=== PATIENT | male | born 1950 | race Caucasian/White ===

== ENCOUNTER → 2019-01-06 15:12 | Outpatient (CLI) | payer MEDICARE, OTHER ==
[~2019-01-06 15:12] MED LIST: ALBUTEROL SULF8.5 GM INH; BACTRIM 400-801 TAB PO; BYSTOLIC10 MG PO; DULERA 100 MCG8.8 GM INH; DULERA 200 MCG8.8 GM INH; LIPITOR10 MG PO; LISINOPRIL40 MG PO; METOPROLOL TART25 MG PO; PLAVIX75 MG PO
[2019-01-14 11:16] VITALS: BMI 27.6
== END | disposition home or self-care (01) ==
LOC: D.CT 15:12
PROVIDERS: ATTEND Thoracic Surgery (Cardiothoracic Vascular Surgery)
DX: I65.23 Occlusion and stenosis of bilateral carotid arteries (principal)

== ENCOUNTER 2019-01-08 08:10 | Inpatient (IN) | payer MEDICARE, OTHER ==
[~2019-01-08] VITALS: Ht 180.3 cm; Wt 87.3 kg
[2019-01-08] MEDS ORDERED: PLAVIX75 MG PO (08:58)
[2019-01-08] MEDS ORDERED: METOPROLOL TART25 MG PO (08:59)
[2019-01-08] MEDS ORDERED: LIPITOR10 MG PO (09:00)
[2019-01-08] MEDS ORDERED: DULERA 200 MCG8.8 GM INH (09:01)
[2019-01-08] MEDS ORDERED: ALBUTEROL SULF8.5 GM INH (09:02)
[2019-01-08] MEDS ORDERED: BYSTOLIC10 MG PO (09:03)
[2019-01-08] MEDS ORDERED: LISINOPRIL40 MG PO (09:05)
[2019-01-08 10:50] LABS: HEMOGLOBIN 18.4 g/dL (13.5-17.5); MCH 34.5 pg (26.0-34.0); MCHC 35.4 g/dL (31.0-37.0); MCV 97.6 fL (80.0-100.0); MEAN PLATELET VOLUME 9.8 fL (7.4-10.4); RBC 5.33 10x6/uL (4.20-6.10); RDW 13.6 % (11.5-14.5); WBC 9.8 10x3/uL (4.8-10.8)
[2019-01-08 11:12] LABS: APTT 32.7 SECONDS (22.8-39.4); INR 1.05 (0.85-1.17); PROTIME 13.2 SECONDS (11.6-15.0)
[2019-01-08 11:21] LABS: ALBUMIN 3.5 g/dL (3.4-5.0); ANION GAP 15.2 mmol/L (8-16); BILIRUBIN - TOTAL 0.86 mg/dL (0.2-1.3); CALCIUM 9.1 mg/dL (8.5-10.1); CARBON DIOXIDE 24.6 mmol/L (21.0-32.0); CREATININE - SERUM 1.1 mg/dL (0.6-1.3); POTASSIUM - SERUM 4.8 mmol/L (3.5-5.1); PROTEIN - SERUM 7.5 g/dL (6.4-8.2)
[2019-01-08 11:45] LABS: APPEARANCE HAZY (CLEAR); BACTERIA FEW /hpf (NONE SEEN); BILIRUBIN NEGATIVE (NEGATIVE); COLOR YELLOW (YELLOW); EPITHELIAL CELLS 0-5 /hpf (0-5); GLUCOSE NEGATIVE (NEGATIVE); KETONE NEGATIVE (NEGATIVE); MUCUS <1+ /lpf (NONE SEEN); NITRITE NEGATIVE (NEGATIVE); PROTEIN 2+ mg/dL (NEGATIVE); SPECIFIC GRAVITY 1.015 (1.005-1.020); UROBILINOGEN NORMAL (NORMAL); WHITE CELLS - URINE OCC /hpf (0-5)
[2019-01-11 12:20] LABS: APPEARANCE HAZY (CLEAR); BILIRUBIN NEGATIVE (NEGATIVE); COLOR YELLOW (YELLOW); GLUCOSE NEGATIVE (NEGATIVE); KETONE NEGATIVE (NEGATIVE); NITRITE NEGATIVE (NEGATIVE); PROTEIN 2+ mg/dL (NEGATIVE); RED CELLS - URINE 0-5 /hpf (0-5); SPECIFIC GRAVITY 1.005 (1.005-1.020); UROBILINOGEN NORMAL (NORMAL)
[2019-01-11 12:21] LABS: BACTERIA FEW /hpf (NONE SEEN); EPITHELIAL CELLS OCC /hpf (0-5); WHITE CELLS - URINE OCC /hpf (0-5)
[2019-01-14] VITALS (53 sets, daily range): BP systolic 100–165; BP diastolic 31–87; BMI 27.6
[2019-01-14] MEDS ORDERED: DULERA 100 MCG8.8 GM INH (05:53)
[2019-01-14] MEDS ORDERED: BACTRIM 400-801 TAB PO (05:55)
[2019-01-14 06:23] LABS: HEMATOCRIT 50.1 % (42.0-54.0); HEMOGLOBIN 17.8 g/dL (13.5-17.5); MCH 34.1 pg (26.0-34.0); MCHC 35.5 g/dL (31.0-37.0); MEAN PLATELET VOLUME 9.6 fL (7.4-10.4); RBC 5.22 10x6/uL (4.20-6.10); RDW 13.2 % (11.5-14.5); WBC 11.4 10x3/uL (4.8-10.8)
[2019-01-14 06:34] LABS: ALBUMIN 3.5 g/dL (3.4-5.0); ALKALINE PHOSPHATASE 85 U/L (46-116); ALT (SGPT) < 6 U/L (10-68); BILIRUBIN - TOTAL 0.83 mg/dL (0.2-1.3); CALC OSMOLALITY 265 mosm/kg (275-300); CALCIUM 8.9 mg/dL (8.5-10.1); CARBON DIOXIDE 25.2 mmol/L (21.0-32.0); CHLORIDE - SERUM 99 mmol/L (98-107); CREATININE - SERUM 1.3 mg/dL (0.6-1.3); GLUCOSE 107 mg/dL (74-106); POTASSIUM - SERUM 4.2 mmol/L (3.5-5.1); PROTEIN - SERUM 7.9 g/dL (6.4-8.2); SODIUM 133 mmol/L (136-145); UREA NITROGEN 13 mg/dL (7-18); eGFR NON AFRICAN AMERICAN 58 mL/min (90-120)
[2019-01-14 06:59] LABS: INR 1.01 (0.85-1.17); PROTIME 12.8 SECONDS (11.6-15.0)
[2019-01-14 07:00] LABS: APTT 35.9 SECONDS (22.8-39.4)
[2019-01-14 09:03] LABS: APPEARANCE HAZY (CLEAR); BILIRUBIN NEGATIVE (NEGATIVE); COLOR YELLOW (YELLOW); GLUCOSE NEGATIVE (NEGATIVE); KETONE NEGATIVE (NEGATIVE); NITRITE NEGATIVE (NEGATIVE); PROTEIN 2+ mg/dL (NEGATIVE); UROBILINOGEN NORMAL (NORMAL); WHITE CELLS - URINE 0-5 /hpf (0-5)
[2019-01-14 09:04] LABS: AMORPHOUS SEDIMENT <1+ /lpf (NONE SEEN); BACTERIA FEW /hpf (NONE SEEN); EPITHELIAL CELLS 0-5 /hpf (0-5); MUCUS <1+ /lpf (NONE SEEN); RED CELLS - URINE 0-5 /hpf (0-5)
--- NOTE | 2019-01-14 10:18 | NUR ---
PT ARRIVED IN THE UNIT. PT HOOKED TO ICU MONITORS. PT SLIGHTLY DROWSEY FROM ANESTESIA. PT ON CLEVIPREX AND NITRO. NSR ON THE MONITOR. SMILE SYMETRICAL. SHOW HOST OR HOSTESS BILATERALLY EQUAL. NEURO CHECKS WNL. RIGHT NECK DRESSING C/D/I. RIGHT UPPER CHEST DONALDO COMPRESSED WITH BLOODY DRAINGE NOTED. LEFT UPPER CHEST CVL NOTED. DRESSING C/D/I. RIGHT RADIAL JERED NOTED WITH A WRIST PROTECTOR ON. CAP REFILL <3 SECONDS. FC NOTED WITH CLEAR, YELLOW URINE. VSS AT THIS TIME WILL CONT POC.
--- NOTE | 2019-01-14 10:29 | NUR ---
NO NEEDLES SEEN IN XRAY. NEEDLES ON COOK STAND NOT COUNTED AT BEGINING OF CASE.
--- NOTE | 2019-01-14 11:15 | NUR ---
PT GIVEN ICE. PT TOLERATING WELL.
--- NOTE | 2019-01-14 11:42 | NUR ---
PT AWAKE AND ALERT. LEFT SIDED FACIAL DROOP NOTED. BILATERAL MUSIC COORDINATOR EQUAL. PUPILS REACTIVE. PT A&O X4. CLEAR SPEACH. WILL CONT POC.
--- NOTE | 2019-01-14 15:45 | NUR ---
PT DANGLED TO THE SIDE OF THE BED. NO ISSUES NOTED. TRACHEA REMAINS MIDLINE. NO STRIDOR. PT A&O X4. BILATEARL PATIENT CARE PROVIDER EQUAL. WILL CONT POC.
--- NOTE | 2019-01-14 17:11 | NUR ---
PT DANLGLED AT THE SIDE OF THE BED AND ATE HIS CLEAR LIQUID DIET. PT TOELRATED WELL. VSS. WILL CONT POC.
--- NOTE | 2019-01-14 19:15 | NUR ---
REPORT REC'D AND CARE ASSUMED, REC'D PT SITTING IN BED WATCHING TV ON ROOM AIR, AWAKE, ALERT, ORIENTED X 4, LEFT A/C PIV SALINE LOCKED, RIGHT RADIAL JERED WITH FLEXION BOARD IN USE, L CVL DRSG CDI WITH PLASMALYTE @ 30CC/HR, NITROGLYCERIN @ 10CC OR 33.33MCG/MIN, AND CLEVIPREX @ 5CC/HR OR 2.5MG/HR, RIGHT NECK DRSG CDI, RIGHT UPPER CHEST DONALDO DRAIN COMPRESSED WITH BLOODY DRAINAGE DRSG CDI, ABD SOFT, BS X 4, GOTTI PATENT DRAINING CLEAR YELLOW URINE, BILAT TEDS/SCDS, PPP, SR UP X 2, BED IN LOW POSITION, CALL LIGHT IN REACH.
--- NOTE | 2019-01-14 20:05 | NUR ---
BROTHER AND [id number] AT FOR VISITATION, UPDATE PROVIDED AND QUESTIONS ANSWERED.
--- NOTE | 2019-01-14 20:35 | NUR ---
EVENING MEDS GIVEN ORDERED, ICE WATER PROVIDED, PT REQUESTING PAIN PILL, TRAMADOL GIVEN FOR PAIN RATING OF "6" ON 0-10 PAIN SCALE, PT DENIES FURTHER NEEDS.
--- NOTE | 2019-01-14 23:15 | NUR ---
REASSESSMENT COMPLETED, NO CHANGES IN NEURO ASSESSMENT, PT REMAINS ORIENTED, DENIES PAIN OR OTHER NEEDS, VSS.
[2019-01-15] VITALS (60 sets, daily range): BP systolic 114–164; BP diastolic 44–82; Ht 180.3 cm; Wt 87.3 kg
--- NOTE | 2019-01-15 01:10 | NUR ---
PT AWAKE, REPOSITIONED UP IN BED FOR COMFORT, PT COMPLAINS OF NECK PAIN, RATING IT "8" ON 0-10 PAIN SCALE, TRAMADOL GIVEN PO AT THIS TIME, ATTEMPTING TO WEAN NITROGLYCERIN.
--- NOTE | 2019-01-15 03:30 | NUR ---
REASSESSMENT COMPLETED, CONTINUING TO WEAN NITROGLYCERIN TOLERATED, BILAT LIGHT TRUCK DRIVER EQUAL AND STRONG, TONGUE MIDLINE, SMILE SYMMETRICAL, DRSG TO RIGHT NECK CDI, RIGHT UPPER CHEST DONALDO DRAIN COMPRESSED WITH SMALL AMOUNT BLOODY DRAINAGE, VSS, WILL CONT TO MONITOR CLOSELY FOR CHANGES.
--- NOTE | 2019-01-15 04:45 | NUR ---
PT'S ICE PACK LEAKED IN BED WITH PATIENT, COMPLETE CHG BATH AND LINEN CHANGE PROVIDED, PT REPOSITIONED UP IN BED FOR COMFORT, VSS.
--- NOTE | 2019-01-15 05:30 | NUR ---
PT REQUESTING PAIN PILL, TRAMADOL PROVIDED AT THIS TIME, VSS, PT DENIES NO FURTHER NEEDS.
--- NOTE | 2019-01-15 05:30 | NUR ---
PT ASSISTED UP TO BATHROOM AND OVER TO RECLINER, CHG BATH GIVEN AND LINENS CHANGED, COFFEE PROVIDED ON REQUEST, CALL LIGHT AND BEDSIDE TABLE WITHIN REACH.
[2019-01-15 06:12] LABS: BASOPHILS 0.4 % (0-2); EOSINOPHILS 0.8 % (0-7); HEMATOCRIT 40.1 % (42.0-54.0); IMMATURE GRANULOCYTES 0.2 % (0-5); LYMPHOCYTES 7.3 % (15-50); MCH 33.1 pg (26.0-34.0); MCHC 34.2 g/dL (31.0-37.0); MCV 96.9 fL (80.0-100.0); MEAN PLATELET VOLUME 9.2 fL (7.4-10.4); MONOCYTES 7.6 % (2-11); NEUTROPHILS 83.7 % (40-80); PLATELET COUNT 222 10x3/uL (130-400); RDW 13.2 % (11.5-14.5); WBC 13.4 10x3/uL (4.8-10.8)
[2019-01-15 06:28] LABS: ANION GAP 13.1 mmol/L (8-16); CALCIUM 7.6 mg/dL (8.5-10.1); CARBON DIOXIDE 24.4 mmol/L (21.0-32.0); CREATININE - SERUM 1.1 mg/dL (0.6-1.3)
[2019-01-15 06:32] LABS: POTASSIUM - SERUM 3.5 mmol/L (3.5-5.1)
[2019-01-15 07:05] LABS: HEMOGLOBIN 13.7 g/dL (13.5-17.5); RBC 4.14 10x6/uL (4.20-6.10)
--- NOTE | 2019-01-15 09:25 | NUR ---
DONALDO REMOVED, A LINE REMOVED PER PROTOCOL TIP INTACT
[2019-01-15] MEDS ORDERED: ULTRAM50 MG PO (09:49)
--- NOTE | 2019-01-15 09:56 | NUR ---
0700 PT RECIEVED ALERT AND ORIENTED R CEA INCISION CDI, R DONALDO COMPRESSED, R A LINE GOOD WAVEFORM, WRIST PROTECTOR IN PLACE, ZEROED, L SUBCLAVIAN CVL DRESSING CDI 0930 ASSISTED UP TO CHAIR
--- NOTE | 2019-01-15 10:53 | NUR ---
1030 GOTTI DCD TIP INTACT URINAL PROVIDED
--- NOTE | 2019-01-15 14:14 | NUR ---
1200 ATE 75% LUNC 1400 PT COMPLAINING OF PAIN TO INCISION SITE, SLIGHT SWELLING NOTED, PT DENIES DIFFICULTY SWALLOWING OR BREATHING, ICE PACK APPLIED, CHIVO MACK RN NOTIFIED
--- NOTE | 2019-01-15 17:43 | NUR ---
1600 AMBULATED WITH PT 1700 ATE 75% DINNER 1730 ASSISTED TO BED
--- NOTE | 2019-01-15 18:02 | NUR ---
GIANNA ORDERED X4 DOSES AND IN COMMENTS X2 DOSES, VERIFIED WITH DR FLORES TO GIVE X4 DOSES
--- NOTE | 2019-01-15 20:30 | NUR ---
REPORT REC'D FROM Kimberly VELASQUEZ RN AND CARE ASSUMED, PT REC'D RESTING QUIETLY IN BED WATCHING TV ON ROOM AIR. AWAKE, ALERT, AND ORIENTED X 4, RIGHT NECK DRSG LOOSE, EDEMA NOTED TO INCISION LINE, DRSG TO PREVIOUS DONALDO SITE CDI, LDLSCL DRSG CDI BOTH PORTS SALINE LOCKED, MAEE, BILAT TEDS AND SCDS INTACT AND ON, PPP, PT DENIES NEEDS AT THIS TIME, BED IN LOW POSITION, CALL LIGHT IN REACH.
--- NOTE | 2019-01-15 20:45 | NUR ---
EVENING MEDS GIVEN, PT COMPLAINS OF INCISIONAL DISCOMFORT RATING IT "6" 0-10 PAIN SCALE, 50MG TRAMADOL GIVEN PO, PT DENIES FURTHER NEEDS.
--- NOTE | 2019-01-15 22:00 | NUR ---
PT ASSISTED UP TO BATHROOM, GAIT STEADY, PT DENIES DIZZINESS UPON RISING, PT INSTRUCTED TO CALL FOR ASSISTANCE BEFORE RETURNING TO BED.
--- NOTE | 2019-01-15 23:00 | NUR ---
REASSESSMENT COMPELTED, NO NEURO CHANGES NOTED, BP STABLE, PT RESTING IN BED EYES CLOSED, RESP EVEN AND UNLABORED, SR UP X 2, BED IN LOW POSITION, CALL LIGHT IN REACH.
[2019-01-16] VITALS (20 sets, daily range): BP systolic 140–197; BP diastolic 62–95
--- NOTE | 2019-01-16 01:00 | NUR ---
NO CHANGES IN STATUS AT THIS TIME
--- NOTE | 2019-01-16 03:00 | NUR ---
REASSESSMENT COMPLETED, PT ASSISTED UP TO THE BATHROOM AND BACK TO BED WITHOUT DIFFICULTY, BP STABLE, WILL CONT TO MONITOR FOR CHANGES.
--- NOTE | 2019-01-16 07:00 | NUR ---
ROUTINE MEDS GIVEN, SBP 180'S, 10MG HYDRALAZINE GIVEN SLOW IVP, PT DENIES PAIN OR OTHER NEEDS, CALL LIGHT IN REACH, INSTRUCTED PT TO CALL FOR ASSISTANCE BEFORE GETTING UP, PT VERBALIZES UNDERSTANDING.
--- NOTE | 2019-01-16 09:26 | OP ---
PATIENT NAME: JUSTO ROQUE MEDICAL RECORD: [id number] :52 LOCATION:[id number].[id number] ADMISSION DATE:01/14/19 SURGEON: JUN FLORES MD DATE OF OPERATION: 01/14/2019 SURGEON: Jun Flores MD RAM PRESS OPERATOR: Christy Bueno. PROCEDURE PERFORMED: Right carotid endarterectomy. PREOPERATIVE DIAGNOSES: Right carotid stenosis, left carotid occlusion. POSTOPERATIVE DIAGNOSES: Right carotid stenosis, left carotid occlusion. ANESTHESIA: General endotracheal anesthesia. ESTIMATED BLOOD LOSS: 30 cc. COMPLICATIONS: None. SPECIMENS: Plaque. CONDITION: Stable. DISPOSITION: CV ICU. OPERATIVE FINDINGS: Calcified plaque extending well up the internal carotid, but feathered well distally in a patch closure. INDICATIONS: Severe right internal carotid artery stenosis with left carotid occlusion. DESCRIPTION OF PROCEDURE: The patient was brought to the operating suite. General anesthesia was obtained. The patient was prepped and draped. An oblique incision was made in the right neck. Incision was taken down through the platysma and the common carotid artery was dissected out and encircled with a vessel loop and ansa was divided. The external carotid and thyroid branch were dissected out, encircled with vessel loops. Internal carotid artery was dissected out distally. Heparin was given. After the heparin had circulated, backbleeding was controlled on the internal carotid with a bulldog clamp. Inflow controlled with a vascular clamp and backbleeding on the external carotid and thyroid branch with vessel loops. Cerebral oximetry remained normal and EEG was normal on both sides and after 2 minutes, the endarterectomy was performed, a total of 7500 of heparin had been given. The arteriotomy was made. Plaque was divided. Eversion endarterectomy of the external carotid and the plaque feathered well distally. Thorough irrigation was undertaken. All bits of loose debris removed. A CorMatrix patch was fashioned to the appropriate size and sutured along the edge of the arteriotomy. Prior to completing the anastomosis, backbleeding on all 3 major vessels. Thorough irrigation of the endarterectomy bed. Anastomosis completed and flow restored, first to the external carotid and then to the internal carotid. Interrupted patch sutures were placed. Protamine was given. A drain was placed through a separate stab wound. Hemostasis was assured. The wound was closed in 3 layers including Dermabond on the skin and the patient was taken to the ICU in stable condition and neurologically intact. OPERATIVE REPORT [id number] JUSTO ROQUE TRANSINT:[id number] Voice Confirmation ID: [id number] DOCUMENT ID: [id number] JUN FLORES MD at 0926 CC: WILMAN PRIETO MD [id number] DICTATION DATE: 01/15/19 1136 MATCH UP WORKER: 01/15/19 1155 ADM IN [place] [id number] [place] [address]
--- NOTE | 2019-01-16 13:01 | NUR ---
[facility] HOME TODAY--SR ON MONITOR-R NECK EDEMA TO TOP INCISION BY EAR LOBE-NOTED R LIP FACIAL DROOP-R EYELID DROOP-SPEECH CLEAR
--- NOTE | 2019-01-16 14:32 | NUR ---
APRESOLINE 10MG IVP GIVEN FOR NIBP 164/86-DR FLORES NOTIFIED-ADDITIONAL ORDER RECIEVED
--- NOTE | 2019-01-16 16:18 | NUR ---
DR FLORES NOTIFIED OF CURRENT BP AND V/S-ORDER RECIEVED AND NOTED-PT EXPRESSED FRUSTRATION ON NOT BEING DISCHARGED TODAY-STRESSED GLASS CURVATURE GAUGER FOR -AND HAS LIMITED CARE AVAILABLE FOR HER
--- NOTE | 2019-01-16 18:51 | NUR ---
DR FLORES SENT UPDATE REQUESTED -RECIEVED ORDER TO DISCHARGE HOME -CONTINUE ALL HOME MEDS WITH EXCEPTION OF LOPRESSOR 12.5-ORDER D/C --L CVL REMOVED PER PROTOCOL--DISCHARGE INSTRUCTIONS GIVEN-STRESSED TO MAKE FIRST AVAILABLE WITH PRIMARY PHYSICIAN-FOR BLOOD PRESSURE CONTROL 1830-PT DISCHARGED WITH BROTHER HOME --GIVEN CVICU NUMBER AND STRESSED TO CALL IF ANY CONCERNS
--- NOTE | 2019-01-17 07:04 | NUR ---
POSSIBLE MISSED V/S FOR 1800
[2019-01-17 15:08] LABS: AEROBE ID Final report (())
[2019-01-17] MEDS ORDERED: NORVASC10 MG PO (16:39)
== END 2019-01-16 19:09 | disposition home or self-care (01) | DRG 39 ==
LOC: D.SDCHOLD 01-12 10:30 → D.CVICU 01-14 10:34
PROVIDERS: ADMIT Thoracic Surgery (Cardiothoracic Vascular Surgery); ATTEND Thoracic Surgery (Cardiothoracic Vascular Surgery)
PROC: 03UK0JZ Supplement Right Internal Carotid Artery with Synthetic Substitute, Open Approach (ICD-10-PCS; 2019-01-14)
PROC: 03CK0ZZ Extirpation of Matter from Right Internal Carotid Artery, Open Approach (ICD-10-PCS; principal; 2019-01-14 07:30)
DX: I65.23 Occlusion and stenosis of bilateral carotid arteries (principal); I97.3 Postprocedural hypertension; I73.9 Peripheral vascular disease, unspecified; F17.200 Nicotine dependence, unspecified, uncomplicated

== ENCOUNTER → 2019-01-11 10:31 | Outpatient (CLI) | payer MEDICARE, OTHER ==
[~2019-01-11 10:31] MED LIST changes: +ULTRAM50 MG PO
== END | disposition home or self-care (01) ==
LOC: D.OPS 10:31
PROVIDERS: ATTEND Thoracic Surgery (Cardiothoracic Vascular Surgery)
DX: N39.0 Urinary tract infection, site not specified (principal)

== ENCOUNTER 2019-01-17 15:28 | Emergency (ER) | payer MEDICARE, OTHER ==
[~2019-01-17] VITALS: Ht 180.3 cm; Wt 90.0 kg
[2019-01-17 15:32] VITALS: BP 198/123; Ht 180.3 cm; Wt 90.0 kg
[2019-01-17 16:09] LABS: BASOPHILS 0.3 % (0-2); EOSINOPHILS 1.5 % (0-7); HEMATOCRIT 47.8 % (42.0-54.0); HEMOGLOBIN 16.5 g/dL (13.5-17.5); IMMATURE GRANULOCYTES 0.2 % (0-5); LYMPHOCYTES 14.6 % (15-50); MCH 33.4 pg (26.0-34.0); MCHC 34.5 g/dL (31.0-37.0); MCV 96.8 fL (80.0-100.0); MEAN PLATELET VOLUME 9.7 fL (7.4-10.4); MONOCYTES 8.4 % (2-11); PLATELET COUNT 304 10x3/uL (130-400); RBC 4.94 10x6/uL (4.20-6.10); WBC 11.5 10x3/uL (4.8-10.8)
[2019-01-17 16:23] LABS: APTT 30.4 SECONDS (22.8-39.4); INR 1.01 (0.85-1.17); PROTIME 12.8 SECONDS (11.6-15.0)
[2019-01-17 16:26] LABS: ALBUMIN 3.4 g/dL (3.4-5.0); ALKALINE PHOSPHATASE 88 U/L (46-116); ALT (SGPT) 9 U/L (10-68); BILIRUBIN - TOTAL 0.56 mg/dL (0.2-1.3); CALC OSMOLALITY 269 mosm/kg (275-300); CALCIUM 9.4 mg/dL (8.5-10.1); CARBON DIOXIDE 27.9 mmol/L (21.0-32.0); CHLORIDE - SERUM 97 mmol/L (98-107); CREATININE - SERUM 1.5 mg/dL (0.6-1.3); GLUCOSE 133 mg/dL (74-106); POTASSIUM - SERUM 4.3 mmol/L (3.5-5.1); PROTEIN - SERUM 8.1 g/dL (6.4-8.2); SODIUM 132 mmol/L (136-145); UREA NITROGEN 21 mg/dL (7-18); eGFR NON AFRICAN AMERICAN 49 mL/min (90-120)
[2019-01-17 16:37] LABS: CKMB 2.8 U/L (0.0-3.6); CREATINE KINASE 155 UL (21-232); MAGNESIUM - SERUM 1.7 mg/dL (1.8-2.4)
[2019-01-17] MEDS ORDERED: NORVASC10 MG PO (16:39)
[2019-01-17 16:40] LABS: TROPONIN-I < 0.017 ng/mL (0.000-0.060)
== END 2019-01-17 17:00 ==
LOC: D.ER 15:28
PROVIDERS: Emergency Medicine
DX: I10 Essential (primary) hypertension (principal); E83.42 Hypomagnesemia; N28.9 Disorder of kidney and ureter, unspecified

== ENCOUNTER → 2019-01-21 13:53 | Outpatient (CLI) | payer MEDICARE, OTHER ==
[2019-01-17 15:32] VITALS: BMI 27.6
[~2019-01-21 13:53] MED LIST changes: +NORVASC10 MG PO
== END | disposition home or self-care (01) ==
LOC: D.CT 13:53
PROVIDERS: ATTEND Internal Medicine Cardiovascular Disease
DX: N20.0 Calculus of kidney (principal); I73.9 Peripheral vascular disease, unspecified

== ENCOUNTER → 2019-02-03 07:56 | Outpatient (CLI) | payer MEDICARE, OTHER ==
[2019-01-17 15:32] VITALS: BMI 27.6
== END | disposition home or self-care (01) ==
LOC: D.US 07:56
PROVIDERS: ATTEND Thoracic Surgery (Cardiothoracic Vascular Surgery)
DX: I73.9 Peripheral vascular disease, unspecified (principal)

== ENCOUNTER → 2019-04-21 10:08 | Outpatient (CLI) | payer MEDICARE, OTHER ==
[2019-01-17 15:32] VITALS: BMI 27.6
== END | disposition home or self-care (01) ==
LOC: D.US 10:08
PROVIDERS: ATTEND Thoracic Surgery (Cardiothoracic Vascular Surgery)
DX: I73.9 Peripheral vascular disease, unspecified (principal)